=== PATIENT | male | born 1990 | race Hispanic/Latino ===

== ENCOUNTER 2022-07-12 11:00 | Emergency (ER) | payer OTHER ==
[~2022-07-12] VITALS: Ht 165.1 cm; Wt 108.9 kg
[2022-07-12 12:09] LABS: COLOR,URINE YELLOW (YELLOW)
[2022-07-12 12:10] LABS: CLARITY,URINE CLEAR (CLEAR); KETONES,URINE NEGATIVE (NEGATIVE); LEUKOCYTE ESTERASE ,URINE NEGATIVE (NEGATIVE); NITRITE,URINE NEGATIVE (NEGATIVE); PROTEIN,URINE DIPSTICK NEGATIVE (NEGATIVE); URINE UROBILINOGEN 0.2 mg/dL (0.2 - 1)
[2022-07-12 12:25] LABS: BACTERIA,URINE FEW /HPF; RBC,URINE 0-5 /HPF (0-5); WBC,URINE (MAN) 0-5 /HPF (0-5)
[2022-07-12 12:26] LABS: EPITHELIAL CELLS,URINE FEW /LPF
[2022-07-12] MEDS ORDERED: HYDROCODONE/APAP 5MG-325MG TAB PO ONE (13:30)
[2022-07-12] MEDS ORDERED: CIPRO500 MG PO (14:17)
[2022-07-12] MEDS ORDERED: IBUPROFEN600 MG PO (14:17)
== END 2022-07-12 14:27 | disposition home or self-care (01) ==
LOC: ER 11:10
DX: N45.1 Epididymitis (principal); N45.2 Orchitis; Q90.9 Down syndrome, unspecified; E03.9 Hypothyroidism, unspecified
CPT/HCPCS: 76870; 81001; 93976; 99284

== ENCOUNTER → 2022-08-02 | Outpatient (CLI) | payer OTHER ==
[~2022-08-02] MED LIST: CIPRO500 MG PO; IBUPROFEN600 MG PO
== END ==
LOC: US 09:04
PROVIDERS: ATTEND Internal Medicine
DX: N50.819 Testicular pain, unspecified (principal); N45.2 Orchitis
CPT/HCPCS: 76870; 93976